=== PATIENT | female | born 1965 | race Caucasian/White ===

== ENCOUNTER 2018-11-05 14:46 | Emergency (ER) | payer BC ==
[~2018-11-05] VITALS: Ht 167.6 cm; Wt 53.5 kg
[2018-11-05] MEDS ORDERED: ONDANSETRON ODT 4 MG ONE ×2 (14:56→15:45)
[2018-11-05] MEDS ORDERED: ONDANSETRON ODT 4 MG PO ONE (15:00)
[2018-11-05] MEDS ORDERED: SODIUM CHLORIDE FLUSH 10ML SYR IVF ONE (15:00)
[2018-11-05 15:29] LABS: BASOPHILS # (AUTO) 0.02 x10^3/uL (0-0.1); BASOPHILS % (AUTO) 0 % (0-1); EOSINOPHILS % (AUTO) 0 % (1-7); LYMPHOCYTES # (AUTO) 0.83 x10^3/uL (1-3.4); LYMPHOCYTES % (AUTO) 10 % (22-44); MD NO; MEAN CORPUSCULAR HEMOGLOBIN 30.2 pg (27.0-34.8); MEAN CORPUSCULAR HGB CONC 32.9 g/dL (32.4-35.8); MEAN CORPUSCULAR VOLUME 91.9 fL (80-100); MEAN PLATELET VOLUME 8.6 fL (7.4-10.4); MONOCYTES # (AUTO) 0.26 x10^3/uL (0.2-0.8); MONOCYTES % (AUTO) 3 % (2-9); NEUTROPHILS # (AUTO) 6.96 x10^3/uL (1.8-6.8); NEUTROPHILS % (AUTO) 86 % (42-75); PLATELET COUNT 243 x10^3/uL (130-400); RED BLOOD COUNT 4.37 x10^6/uL (3.82-5.3); RED CELL DISTRIBUTION WIDTH 13.5 % (9.6-15.2)
[2018-11-05 15:36] LABS: ALANINE AMINOTRANSFERASE 15 U/L (12-78); ALBUMIN 4.2 g/dL (3.4-5.0); ANION GAP 9 mmol/L (5-15); CALCIUM 8.8 mg/dL (8.5-10.1); CHLORIDE 108 mmol/L (98-107); CREATININE 0.72 mg/dL (0.55-1.02)
[2018-11-05 15:40] LABS: ALKALINE PHOSPHATASE 89 U/L (45-117); BILIRUBIN,TOTAL 0.7 mg/dL (0.2-1.0); TOTAL PROTEIN 8.3 g/dL (6.4-8.2)
[2018-11-05] MEDS ORDERED: HYDROcodone/APAP 5/325 TABLET ONE (16:13)
[2018-11-05 16:27] LABS: MICROSCOPIC NOT IND
[2018-11-05] MEDS ORDERED: HYDROcodone/APAP 5/325 TABLET PO ONE (16:30)
[2018-11-05 16:32] LABS: CULTURE INDICATED? NO
[2018-11-05 17:27] VITALS: BP 104/69
== END 2018-11-05 18:49 | disposition home or self-care (01) ==
LOC: ED 18:13
DX: N83.8 Other noninflammatory disorders of ovary, fallopian tube and broad ligament (principal); R11.2 Nausea with vomiting, unspecified
CPT/HCPCS: 36415; 76830; 80053; 81003; 83690; 84703; 85025; 99284; Q0162

== ENCOUNTER 2018-11-06 09:45 | Inpatient (IN) | payer BC ==
[~2018-11-06] VITALS: Ht 165.1 cm; Wt 50.1 kg
--- NOTE | 2018-11-06 09:59 | NUR ---
pt to room from lobby
[2018-11-06] MEDS: morphine SULFATE 10 MG/ML, 1ML IVPush PRN ×2 (10:16→16:13)
--- NOTE | 2018-11-06 10:44 | NUR ---
53 Y/O FEMALE PRESENTS TO ED WITH C/O LOWER LEFT ABD PAIN. PT STATES " I WAS HERE YESTERDAY AND THE PAIN IS WORSE. 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 PT PLACED ON CONT PULSE OX,NIBP. NO C/O N/V/D, TRAUMA, SYNCOPE, CP, SOB.
[2018-11-06] MEDS ORDERED: ONDANSETRON 2MG/ML, 2ML IVPush ONE (11:00)
[2018-11-06 11:04] LABS: MEAN CORPUSCULAR HEMOGLOBIN 30.4 pg (27.0-34.8); MEAN CORPUSCULAR HGB CONC 33.4 g/dL (32.4-35.8); MEAN CORPUSCULAR VOLUME 90.8 fL (80-100); PLATELET COUNT 230 x10^3/uL (130-400); RED BLOOD COUNT 4.45 x10^6/uL (3.82-5.3); RED CELL DISTRIBUTION WIDTH 13.6 % (9.6-15.2)
[2018-11-06 11:12] LABS: ALANINE AMINOTRANSFERASE 11 U/L (12-78); ALBUMIN 4.1 g/dL (3.4-5.0); ANION GAP 8 mmol/L (5-15); CALCIUM 8.2 mg/dL (8.5-10.1); CHLORIDE 109 mmol/L (98-107)
[2018-11-06 11:14] LABS: ALKALINE PHOSPHATASE 82 U/L (45-117); BILIRUBIN,TOTAL 0.8 mg/dL (0.2-1.0); TOTAL PROTEIN 8.2 g/dL (6.4-8.2)
[2018-11-06 11:26] LABS: BASOPHILS # (AUTO) 0.03 x10^3/uL (0-0.1); BASOPHILS % (AUTO) 1 % (0-1); EOSINOPHILS # (AUTO) 0.08 x10^3/uL (0-0.4); EOSINOPHILS % (AUTO) 2 % (1-7); LYMPHOCYTES # (AUTO) 1.46 x10^3/uL (1-3.4); LYMPHOCYTES % (AUTO) 31 % (22-44); MD SCAN; MONOCYTES # (AUTO) 0.35 x10^3/uL (0.2-0.8); MONOCYTES % (AUTO) 7 % (2-9); NEUTROPHILS # (AUTO) 2.82 x10^3/uL (1.8-6.8); NEUTROPHILS % (AUTO) 59 % (42-75)
[2018-11-06] MEDS ORDERED: OMNIPAQUE 350 MG/ML, 100ML BOTTLE ONE (11:26)
--- NOTE | 2018-11-06 11:33 | NUR ---
PT BACK FROM IMAGING.
--- NOTE | 2018-11-06 11:43 | NUR ---
PT RESTING ON GURNEY. MOTHER BEDSIDE. NO NEEDS REQUESTED AT THIS TIME. PT AWARE OF WAITING ON CT RESULTS. VSS.
[2018-11-06] MEDS ORDERED: SODIUM CHLORIDE FLUSH 10ML SYR IVF ONE (12:00)
[2018-11-06] MEDS ORDERED: PROMETHAZINE 25MG TABLET ONE (12:04)
--- NOTE | 2018-11-06 12:21 | NUR ---
REPORT TO KIRAN FERRIS. ALL QUESTIONS ANSWERED.
[2018-11-06] MEDS ORDERED: PROMETHAZINE 25MG TABLET PO ONE (12:30)
--- NOTE | 2018-11-06 12:32 | NUR ---
PT TRANSFERRED TO FLOOR. PT LEFT WITH ALL PERSONAL BELONGINGS.
[2018-11-06] MEDS ORDERED: POLYETHYLENE GLYCOL 17 GM PACKET PO PRN (13:00)
[2018-11-06] MEDS ORDERED: METHOCARBAMOL 500 MG TABLET PO PRN (13:00)
[2018-11-06] MEDS ORDERED: ONDANSETRON ODT 4 MG PO PRN (13:00)
[2018-11-06] MEDS ORDERED: ONDANSETRON 2MG/ML, 2ML IVPush PRN (13:00)
[2018-11-06 13:16] VITALS: BP 110/69
[2018-11-06] MEDS: SODIUM CHLORIDE 0.9% 1,000 ML IV SCH ×2 (13:31→23:15)
[2018-11-06] MEDS ORDERED: GADOBUTROL 7.5 MMOL/7.5 ML PFS ONE (15:51)
[2018-11-06 17:22] VITALS: BP 113/70
[2018-11-06] MEDS: HYDROcodone/APAP 5/325 TABLET PO PRN (19:04)
[2018-11-06] MEDS: OMEPRAZOLE 20 MG CAPSULE.DR PO SCH (19:04)
[2018-11-06] MEDS: methylPREDNISolone SOD SUCC 125 MG/2 ML IVPush SCH (19:04)
[2018-11-06 20:47] VITALS: BP 108/65
[2018-11-07] MEDS: methylPREDNISolone SOD SUCC 125 MG/2 ML IVPush SCH ×3 (00:32→12:59)
[2018-11-07 01:00] VITALS: BP 108/66
[2018-11-07] MEDS: HYDROcodone/APAP 5/325 TABLET PO PRN ×2 (04:53→11:06)
[2018-11-07 05:28] LABS: CHLORIDE 113 mmol/L (98-107)
[2018-11-07 05:33] LABS: BASOPHILS % (AUTO) 0 % (0-1); EOSINOPHILS % (AUTO) 0 % (1-7); LYMPHOCYTES % (AUTO) 14 % (22-44); MD NO; MEAN CORPUSCULAR HEMOGLOBIN 30.8 pg (27.0-34.8); MEAN CORPUSCULAR HGB CONC 33.8 g/dL (32.4-35.8); MEAN CORPUSCULAR VOLUME 91.2 fL (80-100); MEAN PLATELET VOLUME 8.8 fL (7.4-10.4); MONOCYTES # (AUTO) 0.02 x10^3/uL (0.2-0.8); MONOCYTES % (AUTO) 1 % (2-9); NEUTROPHILS # (AUTO) 3.01 x10^3/uL (1.8-6.8); NEUTROPHILS % (AUTO) 85 % (42-75); PLATELET COUNT 185 x10^3/uL (130-400); RED CELL DISTRIBUTION WIDTH 13.4 % (9.6-15.2)
[2018-11-07 05:46] LABS: ALANINE AMINOTRANSFERASE 11 U/L (12-78); ALBUMIN 3.4 g/dL (3.4-5.0); ALKALINE PHOSPHATASE 73 U/L (45-117); ANION GAP 5 mmol/L (5-15); BILIRUBIN,TOTAL 0.6 mg/dL (0.2-1.0); CALCIUM 7.7 mg/dL (8.5-10.1); CREATININE 0.62 mg/dL (0.55-1.02); THYROID STIMULATING HORMONE 0.289 mIU/L (0.358-3.740)
[2018-11-07] MEDS: OMEPRAZOLE 20 MG CAPSULE.DR PO SCH (05:50)
[2018-11-07 07:20] VITALS: BP 105/63
[2018-11-07] MEDS: SODIUM CHLORIDE 0.9% 1,000 ML IV SCH (08:22)
[2018-11-07] MEDS ORDERED: SENNA/DOCUSATE TABLET PO SCH (09:00)
[2018-11-07] MEDS ORDERED: OMNIPAQUE 350 MG/ML, 75ML BOTTLE ONE (09:26)
[2018-11-07] MEDS ORDERED: OMEP-110 PO (12:49)
[2018-11-07] MEDS ORDERED: METH500T7 PO (12:49)
[2018-11-07] MEDS ORDERED: HYDR-3240 PO (12:49)
== END 2018-11-07 14:29 | disposition home or self-care (01) | DRG 760 ==
LOC: ED 11:13 → EDIP 12:01 → 3NE 12:37 → DCLOUNGE 11-07 14:15
PROVIDERS: ADMIT Internal Medicine; ATTEND Internal Medicine
DX: N83.201 Unspecified ovarian cyst, right side (principal); Z68.1 Body mass index [BMI] 19.9 or less, adult; D68.0 Von Willebrand disease; I35.1 Nonrheumatic aortic (valve) insufficiency; I73.00 Raynaud's syndrome without gangrene; M79.7 Fibromyalgia; Z80.0 Family history of malignant neoplasm of digestive organs; Z82.49 Family history of ischemic heart disease and other diseases of the circulatory system; Z83.3 Family history of diabetes mellitus; R63.4 Abnormal weight loss; Z88.6 Allergy status to analgesic agent; Z88.8 Allergy status to other drugs, medicaments and biological substances; C44.90 Unspecified malignant neoplasm of skin, unspecified; K80.20 Calculus of gallbladder without cholecystitis without obstruction; K82.8 Other specified diseases of gallbladder
CPT/HCPCS: 36415; 99285; Q0169; 70491; 72197; 74177; 74181; 80053; 83605; 83735; 84100; 84439; 84443; 85025; 96374; A9585; G0378; J2405; Q9967; J2270; J2930; J7030